=== PATIENT | male | born 1990 | race Caucasian/White ===

== ENCOUNTER 2018-06-04 13:16 | Observation (INO) ==
--- NOTE | 2018-06-04 14:24 | CT ---
EXAM DATE: 06/04/2018 2:11 PM EST AGE/SEX: 89 years / Male INDICATIONS: Trauma. Neck pain. CLINICAL DATA: This is the patient's initial encounter. Patient reports that signs and symptoms have been present for 1 day and indicates a pain score of 6/10. MEDICAL/SURGICAL HISTORY: None. None. RADIATION DOSE: 19.24 CTDI (mGy) COMPARISON: No prior exams available for comparison. TECHNIQUE: Contiguous axial images were obtained using helical multirow detector technique. The vol umetric data was post-processed with multiplanar reconstruction in oblique axial, sagittal, and coron al planes. Using automated exposure control and adjustment of the mA and/or kV according to patient s ize, radiation dose was kept as low as reasonably achievable to obtain optimal diagnostic quality emiliano ges. DICOM format image data is available electronically for review and comparison. FINDINGS: There is a fracture of the anterior and posterior arch of C1. Alignment at C1-C2 is reasonably anatom ic. This has been described 05/17/2018. C2-3: The bony spinal canal is normal in size. No evidence of disc bulge or herniation. The neural foramina are bilaterally patent. C3-4: The bony spinal canal is normal in size. No evidence of disc bulge or herniation. The neural foramina are bilaterally patent. C4-5: The bony spinal canal is normal in size. No evidence of disc bulge or herniation. The neural foramina are bilaterally patent. C5-6: The bony spinal canal is normal in size. No evidence of disc bulge or herniation. The neural foramina are bilaterally patent. C6-7: The bony spinal canal is normal in size. No evidence of disc bulge or herniation. The neural foramina are bilaterally patent. C7-T1: The bony spinal canal is normal in size. No evidence of disc bulge or herniation. The neura l foramina are bilaterally patent. CONCLUSION: 1. Fracture of the anterior and posterior arch of C1. Alignment is anatomic. 2. No other significant findings. Electronically signed by: Kwesi Brice MD Board Certified Radiologist 06/04/2018 2:22 PM EST
[2018-06-04 15:10] LABS: Baso # (Auto) 0.1 th/mm3 (0.0-0.2); Eos # (Auto) 0.2 th/mm3 (0.0-0.4); Eos % (Auto) 3.9 % (0.0-4.0); Hematocrit 43.6 % (39.0-51.0); Hemoglobin 15.3 gm/dL (13.0-17.0); Lymph # (Auto) 1.7 th/mm3 (1.0-4.8); Lymph % (Auto) 33.4 % (9.0-44.0); Mean Corpuscular HGB Conc 35.1 % (32.0-36.0); Mean Corpuscular Hemoglobin 31.5 pg (27.0-34.0); Mean Corpuscular Volume 89.9 fL (80.0-100.0); Mean Platelet Volume 7.8 fL (7.0-11.0); Mono # (Auto) 0.4 th/mm3 (0.0-0.9); Mono % (Auto) 7.9 % (0.0-8.0); Neut # (Auto) 2.7 th/mm3 (1.8-7.7); Neut % (Auto) 53.8 % (16.0-70.0); Platelet Count 345 th/mm3 (150-450); Red Blood Count 4.85 mil/mm3 (4.50-5.90); Red Cell Distribution Width 12.6 % (11.6-17.2)
[2018-06-04 15:23] LABS: Activated Partial Thrombo Time 26.8 sec (23.4-31.7); INR 1.1 Ratio; Prothrombin Time 10.7 sec (9.8-11.6)
[2018-06-04 15:34] LABS: Albumin 4.2 g/dL (3.4-5.0); Anion Gap 6 meq/L (5-15); Aspartate Aminotransferase 22 U/L (15-37); Blood Urea Nitrogen 9 mg/dL (7-18); Calcium 8.8 mg/dL (8.5-10.1); Carbon Dioxide 28.5 meq/L (21.0-32.0); Chloride 105 meq/L (98-107); Glomerular Filtration Rate 86 mL/min (>89); Glucose,Random 94 mg/dL (74-106); Potassium 3.9 meq/L (3.5-5.1); Sodium 139 meq/L (136-145)
[2018-06-04 15:38] LABS: Alanine Aminotransferase 29 U/L (12-78); Alkaline Phosphatase 101 U/L (45-117); Total Protein 7.9 g/dL (6.4-8.2)
[2018-06-04] MEDS ORDERED: Acetaminophen 325 MG Tablet PO PRN (16:05)
[2018-06-04] MEDS ORDERED: Bisacodyl 10 MG Supp RECTAL PRN ×2 (16:05→22:03)
--- NOTE | 2018-06-04 17:29 | P.PNVS ---
Subjective Subjective/Hospital Course: Patient known from previous encounters with a C1-C2 fracture and placement of a halo Apparently patient came to Dr. Alvarenga's office for follow-up caring halo in the bag and states he took it off himself This is an unstable fracture and patient clearly needs to have halo replaced I have discussed this with Dr. Alvarenga Patient has been in the meantime admitted to medicine and if any help from trauma surgery is required or desired I will be available Thanks Beck Objective Vital Signs / I&O: Vital Signs 06/04/18 13:17 06/04/18 14:00 Temperature 97.7 F Pulse Rate 75 71 Respiratory Rate 20 18 Blood Pressure 118/78 119/78 Pulse Oximetry 98 99 Intake & Output 06/03/18 06/04/18 06/04/18 18:59 06:59 18:59 Weight 70.307 kg Laboratory Results - last 24 hr 06/04/18 06/04/18 06/04/18 14:53 14:53 14:53 WBC 5.0 RBC 4.85 Hgb 15.3 Hct 43.6 MCV 89.9 MCH 31.5 MCHC 35.1 RDW 12.6 Plt Count 345 D MPV 7.8 Neut % (Auto) 53.8 Lymph % (Auto) 33.4 [place] % (Auto) 7.9 Eos % (Auto) 3.9 Baso % (Auto) 1.0 Neut # (Auto) 2.7 Lymph # (Auto) 1.7 [place] # (Auto) 0.4 Eos # (Auto) 0.2 Baso # (Auto) 0.1 WBC Differential . Differential Comment Auto diff final PT 10.7 INR 1.1 APTT 26.8 Sodium 139 Potassium 3.9 Chloride 105 Carbon Dioxide 28.5 Anion Gap 6 BUN 9 Creatinine 0.78 Estimated GFR 86 L Random Glucose 94 Calcium 8.8 Total Bilirubin 0.4 AST 22 ALT 29 Alkaline Phosphatase 101 Total Protein 7.9 Albumin 4.[address] 06/04/18 13:30 CONCLUSION: 1. Fracture of the anterior and posterior arch of C1. Alignment is anatomic. 2. No other significant findings.
--- NOTE | 2018-06-04 17:45 | ED ---
HPI General Chief complaint: Headache Stated complaint: Headache Time Seen by Provider: 06/04/18 13:24 Source: patient and family Mode of arrival: ambulatory Limitations: language barrier History of Present Illness HPI narrative: Patient is a 22-year-old male planes of neck pain. He was seen here at the end of April and was diagnosed with a fracture of C1. He was discharged in a halo. Per family member, patient removed the halo yesterday because he did not know when he was supposed to get off and he had already worn it for 15 days. He denies any numbness or tingling of his extremities. He says the pain in his neck just started today. Severity is moderate. Related Data Previous Rx's Medication Instructions Recorded acetaminophen [Tylenol] 650 mg PO Q4H PRN #20 tab 05/19/18 Allergies Allergy/AdvReac Type Severity Reaction Status Date / Time Pork (meat) Allergy Unknown Itching Uncoded 06/04/18 13:19 Review of Systems ROS: all other systems reviewed are negative Constitutional Denies chills and Denies fever(s) ENT Reports neck pain Cardiovascular Denies chest pain Respiratory Denies dyspnea Gastrointestinal Denies abdominal pain, Denies nausea and Denies vomiting Musculoskeletal Reports neck pain Integumentary/Breasts Denies sores and Denies wounds Neurologic Denies numbness and Denies tingling PMFSH Medical History Medical History Cervical spine fracture (Acute) Patient denies medical problems (Acute) Surgical History Surgical History No history of previous surgery (Acute) Family History Family History Other Family history unknown Social History Social History Substance History: Unable to Obtain Second Hand Smoke Exposure: No Smoking Status: Never smoker How Often Do You Have a Drink Containing Alcohol: 2 to 4 times a month Recent Travel in [facility] within the Last 8 Weeks: No Recent Out of Country Travel within the Last 8 Weeks: No Immunization History Tetanus Immunization: Unable to Assess Exam Narrative Exam Narrative: GENERAL: Awake and alert, in no acute distress. SKIN: Focused skin assessment warm/dry. HEAD: Atraumatic. Normocephalic. EYES: Pupils equal and round. No scleral icterus. No injection or drainage. ENT: No nasal bleeding or discharge. Mucous membranes pink and moist. NECK: Trachea midline. No JVD. [place] J collar in place. CARDIOVASCULAR: Regular rate and rhythm. No murmur appreciated. RESPIRATORY: No accessory muscle use. Clear to auscultation. Breath sounds equal bilaterally. GASTROINTESTINAL: Abdomen soft, non-tender, nondistended. MUSCULOSKELETAL: No obvious deformities. No clubbing. No cyanosis. No edema. NEUROLOGICAL: Awake and alert. No obvious cranial nerve deficits. Motor grossly within normal limits. Normal speech. No sensory deficit. PSYCHIATRIC: Appropriate mood and affect; insight and judgment normal. Course Initial Documented Vital Signs Temperature 97.7 F 06/04/18 13:17 Pulse Rate 75 06/04/18 13:17 Respiratory Rate 20 06/04/18 13:17 Blood Pressure 118/78 06/04/18 13:17 Pulse Oximetry 98 06/04/18 13:17 Last Documented Vital Signs Temperature 98.3 F 06/04/18 18:00 Pulse Rate 67 06/04/18 18:00 Respiratory Rate 16 06/04/18 18:00 Blood Pressure 118/78 06/04/18 18:00 Pulse Oximetry 98 06/04/18 18:00 Medical Decision Making MDM Narrative Medical decision making narrative: Patient is a 22-year-old male who comes in complaining of neck pain. He has a known C1 fracture, but removed his halo by himself yesterday. Exam shows no neurologic abnormalities. CT of the C-spine performed shows a fracture, no worsening since previous. Dr. Alvarenga is aware of the patient, he will take the patient to the OR to replace the halo. patient given pain medicine. Admitted for further management. Medical Screen Exam Complete: Yes Emergency Medical Condition: Yes Differential Diagnosis Differential Diagnosis: C1 fracture vs spinal cord injury vs neurologic abnormalities Medical Records Medical records reviewed: Yes I reviewed the patient's medical records. Lab Data Lab results reviewed: Yes I reviewed the patient's lab results. Result diagrams: 06/04/18 14:53 06/04/18 14:53 Lab Results 06/04/18 06/04/18 06/04/18 Range/Units 14:53 14:53 14:53 WBC 5.0 (4.0-11.0) th/mm3 RBC 4.85 (4.50-5.90) mil/mm3 Hgb 15.3 (13.0-17.0) gm/dL Hct 43.6 (39.0-51.0) % MCV 89.9 (80.0-100.0) fL MCH 31.5 (27.0-34.0) pg MCHC 35.1 (32.0-36.0) % RDW 12.6 (11.6-17.2) % Plt Count 345 D (150-450) th/mm3 MPV 7.8 (7.0-11.0) fL Neut % (Auto) 53.8 (16.0-70.0) % Lymph % (Auto) 33.4 (9.0-44.0) % [place] % (Auto) 7.9 (0.0-8.0) % Eos % (Auto) 3.9 (0.0-4.0) % Baso % (Auto) 1.0 (0.0-2.0) % Neut # (Auto) 2.7 (1.8-7.7) th/mm3 Lymph # (Auto) 1.7 (1.0-4.8) th/mm3 [place] # (Auto) 0.4 (0.0-0.9) th/mm3 Eos # (Auto) 0.2 (0.0-0.4) th/mm3 Baso # (Auto) 0.1 (0.0-0.2) th/mm3 WBC Differential . Differential Comment Auto diff final PT 10.7 (9.8-11.6) sec INR 1.1 Ratio APTT 26.8 (23.4-31.7) sec Sodium 139 (136-145) meq/L Potassium 3.9 (3.5-5.1) meq/L Chloride 105 (98-107) meq/L Carbon Dioxide 28.5 (21.0-32.0) meq/L Anion Gap 6 (5-15) meq/L BUN 9 (7-18) mg/dL Creatinine 0.78 (0.60-1.30) mg/dL Estimated GFR 86 L (>89) mL/min Random Glucose 94 (74-106) mg/dL Calcium 8.8 (8.5-10.1) mg/dL Total Bilirubin 0.4 (0.2-1.0) mg/dL AST 22 (15-37) U/L ALT 29 (12-78) U/L Alkaline Phosphatase 101 (45-117) U/L Total Protein 7.9 (6.4-8.2) g/dL Albumin 4.2 (3.4-5.0) g/dL Imaging Data Radiologist's impression: Cervical Spine CT 06/04/18 13:30 CONCLUSION: 1. Fracture of the anterior and posterior arch of C1. Alignment is anatomic. 2. No other significant findings. Discharge Plan Discharge Disposition Patient Disposition: ED Admit(ED Internal Use Only) Discharge Condition Condition: Stable Discharge Order Discharge Orders: ED Use Only Admit Order (Routine); Ordered 06/04/18 Ordered By: Gracia Ramirez Discharge Details Diagnosis: C1 cervical fracture Physicians Team ED Provider: Gracia Ramirez Primary Care Provider: UNKNOWN, Attending Provider: Shahbaz Brown Other Providers: Ruel Alvarenga Status ED Status: Left Department Discharge Information Discharge Date/Time: 06/04/18 18:56
[2018-06-04] MEDS ORDERED: Chlorhexidine Gluconate 2% 1 Pack (2 Cloths) TOPICAL ONE (19:29)
[2018-06-04] MEDS ORDERED: Metoprolol Tartrate 25 MG Tablet PO ONE (19:29)
[2018-06-04] MEDS ORDERED: Sodium Chlor 0.9% Inj 500 ML IV.SIG ONE (20:00)
[2018-06-04] MEDS ORDERED: Ketamine Inj 50 MG/5 ML Syringe IV.PUSH ONE (20:02)
[2018-06-04] MEDS ORDERED: Lidocaine 1%/Epinephrine 1:100,000 Inj 30 ML Vial ONE (20:12)
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
[2018-06-04] MEDS ORDERED: Morphine Sulfate Inj 2 MG/ML Vial IV.PUSH PRN (22:03)
--- NOTE | 2018-06-04 22:11 | P.OP ---
Preoperative Diagnosis: Unstable C1 fractures Postoperative Diagnosis: Unstable C1 fractures Date of procedure: 06/11/18 Procedure: Placement of halo brace. Anesthesia: MAC Surgeon: Ruel Alvarenga MD Administrative Fellow: cortney Pathology: none sent Operation and Findings: INDICATIONS The patient is a young male who suffered a fall and presented with severe neck pain. He had unstable fractures of C1. He was non compliant and he removed his halo brace. The fractures were unstable. Placement of halo brace was indicated. I have discussed with him the [id number] details of the procedure, its indications, alternatives, risks and potential complications with the patient including but not limited to the risk of infection, hemorrhage, paralysis, stroke, heart attack, even vegetative state or even the possibility of . The patient fully understands. All her questions were answered. No guarantees were given. She voiced requesting the procedure and provided informed consent. She has been offered the alternative of not having aggressive management. DETAILS OF THE SURGICAL PROCEDURE The entire procedure was performed with the patient wearing a hard cervical collar and the cervical spine in a neutral position. Whenever movement was indicated, the patient was carefully log-rolled awake. Initially the patient was log-rolled and a vest was placed on the patient's thorax. The vest was tightly secured. Then keeping the head in a neutral position, the bilateral parieto-occipital area was shaved and prepped with Betadine. The bilateral frontal area was prepped with Betadine. 1% lidocaine was used to numb the skull. A halo was brought to the patient's head and carefully secured in a symmetrical position using the torque wrench calibrated at the pressure of 8 pounds per square foot. Once all pins were secured to the patient's skull, four posts were used to connect the halo to the vest and all the connections secured with a torque wrench. The patient's cervical spine was kept in a neutral position. X-ray of the cervical spine was ordered at the end of the procedure. The patient tolerated the procedure well. There were no intraoperative complications.
[2018-06-04] MEDS ORDERED: *morphine SULFATE 4 MG/ML PERIprocedure ONLY ONE (22:13)
[2018-06-04] MEDS ORDERED: fentaNYL Citrate Inj 100 MCG/2 ML Ampul ONE (22:17)
--- NOTE | 2018-06-04 22:30 | XR ---
EXAM DATE: 06/04/2018 10:27 PM EST AGE/SEX: 89 years / Male INDICATIONS: Halo placement. CLINICAL DATA: This is the patient's initial encounter. Patient reports that signs and symptoms have been present for 1 day and indicates a pain score of Nonresponsive. MEDICAL/SURGICAL HISTORY: . Cervical spine fracture. None. COMPARISON: [facility] [place], CT CERVICAL SPINE W/O CONTRAST, 06/04/2018. . FINDINGS: AP and lateral fluoroscopic views of the upper cervical spine. Patient's C1 fracture is not well demo nstrated. Remaining vertebral body heights are intact and there is intact sagittal alignment in the v isualized portions of the spine. CONCLUSION: 1. Intraoperative examination, as above. Electronically signed by: Hoang Doyle MD Board Certified Radiologist 06/04/2018 10:29 PM Brenda LOVE
[2018-06-04] MEDS: ceFAZolin 1 GM Premix Inj 1 GM/50 ML PIGGYBACK IV.SIG SCH (23:39)
[2018-06-05] MEDS: ceFAZolin 1 GM Premix Inj 1 GM/50 ML PIGGYBACK IV.SIG SCH ×2 (06:15→16:30)
[2018-06-05] MEDS: Senna/Docusate Sodium 8.6/50 MG Tablet PO SCH ×2 (08:58→21:00)
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
[2018-06-06] MEDS: Senna/Docusate Sodium 8.6/50 MG Tablet PO SCH (08:30)
[2018-06-06 08:37] VITALS: TEMP 98.1
[2018-06-06 12:23] VITALS: BP 127/85; PULSE 71; RESP 18; O2SAT 97
== END 2018-06-06 15:40 | disposition home or self-care (01) ==
LOC: NEPC 13:16 → INTOOBSV 16:06 → NEDA 16:06 → EDBD 16:06 → N06 18:32
PROVIDERS: ADMIT Surgery; ATTEND Surgery
DX: M54.2 Cervicalgia; R51 Headache; S12.090A Other displaced fracture of first cervical vertebra, initial encounter for closed fracture; R06.89 Other abnormalities of breathing; S12.030A Displaced posterior arch fracture of first cervical vertebra, initial encounter for closed fracture; Z91.19 Patient's noncompliance with other medical treatment and regimen